=== PATIENT | male | born 1945 | race Caucasian/White ===

== ENCOUNTER 2020-02-03 14:06 | Emergency (ER) | payer OTHER | END 2020-02-03 15:40 | disposition home or self-care (01) | LOC: JVIRT 14:06 | DX: Z11.59 Encounter for screening for other viral diseases (principal) | CPT/HCPCS: C9803; Q3014-GT; U0003 ==

== ENCOUNTER 2020-03-22 07:12 | Emergency (ER) | payer OTHER ==
[2020-03-22] MEDS ORDERED: ACETAMINOPHEN 1000 MG/100 ML VIAL (NON FORMULARY) IVPB ONE (07:39)
[2020-03-22 07:46] VITALS: BMI 30.1
[2020-03-22] MEDS ORDERED: ACETAMINOPHEN INJECTION 100 ML IVPB ONE (08:05)
[2020-03-22 08:47] LABS: BASO % 0.3 % (0-2.0); EOS % 0.3 % (0-4.5); HEMATOCRIT 31.4 % (35.4-49); HEMOGLOBIN 10.7 GM/dL (11.7-16.9); LYMPH % 7.6 % (8-40); MCH 28.6 pg (25.7-33.7); MEAN CELL VOLUME 84.1 fl (80-96); MEAN PLT VOLUME 8.4 fl (7.5-11.1); MONO % 5.4 % (3.8-10.2); NEUT % 86.4 % (42.8-82.8); PLATELET COUNT 199 K/MM3 (134-434); RBC 3.74 M/mm3 (4.00-5.60); RDW 14.6 % (11.9-15.9); WHITE BLOOD COUNT 8.2 K/mm3 (4.0-10.0)
[2020-03-22 09:11] LABS: POTASSIUM 3.8 mmol/L (3.5-5.1); SODIUM 134 mmol/L (136-145)
[2020-03-22 09:12] LABS: CHLORIDE 100 mmol/L (98-107)
[2020-03-22 09:16] LABS: ANION GAP 7 MMOL/L (8-16); BLOOD UREA NITROGEN 15.8 mg/dL (7-18); CALCIUM 8.6 mg/dL (8.5-10.1); CO2 28 mmol/L (21-32); GLUCOSE,RANDOM 134 mg/dL (74-106)
[2020-03-22 09:17] LABS: ALBUMIN 2.9 g/dl (3.4-5.0)
[2020-03-22 09:18] LABS: LIPASE 47 U/L (73-393)
[2020-03-22 09:19] LABS: SGOT/AST 31 U/L (15-37); SGPT/ALT < 6 U/L (13-61)
[2020-03-22 09:21] LABS: BILIRUBIN,TOTAL 1.6 mg/dL (0.2-1); CREATININE 0.8 mg/dL (0.55-1.3); TOT PROT 7.4 g/dl (6.4-8.2)
[2020-03-22 09:22] LABS: ALK PHOS 100 U/L (45-117)
[2020-03-22] MEDS ORDERED: CARBIDOPA/LEVODOPA 25/250 TABLET (FP) PO ONE (10:56)
[2020-03-22 11:04] LABS: PH,URINE 5.5 (5.0-8.0); URINE APPEARANCE CLEAR; URINE BILIRUBIN NEGATIVE (NEGATIVE); URINE COLOR YELLOW; URINE GLUCOSE (UA) NEGATIVE (NEGATIVE); URINE KETONE TRACE (NEGATIVE); URINE LEUK ESTERASE NEGATIVE (NEGATIVE); URINE NITRITE NEGATIVE (NEGATIVE); URINE PROTEIN TRACE (NEGATIVE)
[2020-03-22] MEDS ORDERED: CARBIDOPA/LEVODOPA 25/250 TABLET (FP) ONE (11:21)
[2020-03-22 11:55] VITALS: BP 139/84; PULSE 84; TEMP 97.9
== END 2020-03-22 14:46 | disposition home or self-care (01) ==
LOC: JER 07:12
PROC: 3E033NZ Introduction of Analgesics, Hypnotics, Sedatives into Peripheral Vein, Percutaneous Approach (ICD-10-PCS; principal; 2020-03-22)
DX: K52.9 Noninfective gastroenteritis and colitis, unspecified (principal); C79.9 Secondary malignant neoplasm of unspecified site; R10.31 Right lower quadrant pain
CPT/HCPCS: 36415; 74177-TC; 80053; 81003; 82550; 83605; 83690; 84484; 85025; 87040; 87086; 93005; 93010; 99285-25; J0131; Q9967

== ENCOUNTER 2020-04-15 05:06 | Day surgery (SDC) | payer OTHER ==
[2020-04-13 14:06] VITALS: BMI 29.8
[2020-04-15 16:05] VITALS: BP 135/78; PULSE 85; TEMP 98.2
== END 2020-04-15 15:15 | disposition home or self-care (01) ==
LOC: JRADIR 05:06
PROVIDERS: ATTEND Internal Medicine Gastroenterology
PROC: 0FB13ZX Excision of Right Lobe Liver, Percutaneous Approach, Diagnostic (ICD-10-PCS; principal; 2020-04-15)
DX: C22.7 Other specified carcinomas of liver (principal)
CPT/HCPCS: 76942-TC; 87899; 88305-TC; 88341-TC; 88342-TC

== ENCOUNTER 2020-04-22 11:16 | Emergency (ER) | payer OTHER ==
[2020-04-22 11:47] VITALS: BMI 29.0
[2020-04-22] MEDS ORDERED: SODIUM CHLORIDE 0.9% 500 ML INFUS.BAG IV ONE (11:55)
[2020-04-22] MEDS ORDERED: ACETAMINOPHEN 1000 MG/100 ML VIAL (NON FORMULARY) IVPB ONE (11:55)
[2020-04-22 12:17] LABS: BASO % 0.5 % (0-2.0); EOS % 1.2 % (0-4.5); HEMATOCRIT 25.2 % (35.4-49); HEMOGLOBIN 8.2 GM/dL (11.7-16.9); LYMPH % 12.3 % (8-40); MCH 27.3 pg (25.7-33.7); MCHC 32.6 g/dl (32.0-35.9); MEAN CELL VOLUME 83.5 fl (80-96); MEAN PLT VOLUME 8.3 fl (7.5-11.1); MONO % 8.9 % (3.8-10.2); NEUT % 77.1 % (42.8-82.8); PLATELET COUNT 251 K/MM3 (134-434); RBC 3.02 M/mm3 (4.00-5.60); RDW 16.9 % (11.9-15.9)
[2020-04-22 12:28] LABS: INR 1.42 (0.83-1.09)
[2020-04-22] MEDS ORDERED: ACETAMINOPHEN INJECTION 100 ML IVPB ONE (12:29)
[2020-04-22 12:31] LABS: ACTIVATED PTT 31.8 SECONDS (25.2-36.5); CHLORIDE 102 mmol/L (98-107); SODIUM 139 mmol/L (136-145)
[2020-04-22 12:33] LABS: CALCIUM 8.7 mg/dL (8.5-10.1)
[2020-04-22 12:34] LABS: ALBUMIN 2.4 g/dl (3.4-5.0); ANION GAP 8 MMOL/L (8-16); BLOOD UREA NITROGEN 14.6 mg/dL (7-18); CO2 29 mmol/L (21-32); GLUCOSE,RANDOM 126 mg/dL (74-106)
[2020-04-22 12:37] LABS: CREATININE 0.8 mg/dL (0.55-1.3); SGOT/AST 36 U/L (15-37); SGPT/ALT 10 U/L (13-61)
[2020-04-22 12:39] LABS: BILIRUBIN,TOTAL 1.3 mg/dL (0.2-1); TOT PROT 7.2 g/dl (6.4-8.2)
[2020-04-22 12:40] LABS: ALK PHOS 142 U/L (45-117)
[2020-04-22 12:41] VITALS: PULSE 74
[2020-04-22 16:44] VITALS: BP 143/73; TEMP 98.7
== END 2020-04-22 16:45 | disposition home or self-care (01) ==
LOC: JER 11:16
PROC: 3E0333Z Introduction of Anti-inflammatory into Peripheral Vein, Percutaneous Approach (ICD-10-PCS; principal; 2020-04-22)
DX: R07.9 Chest pain, unspecified (principal)
CPT/HCPCS: 36415; 71045-TC-FY; 71275-TC; 80053; 82550; 84484; 85025; 85610; 85730; 93005; 93010; 99285-25; C9803; J0131; Q9967; U0003

== ENCOUNTER 2020-04-27 14:01 | Inpatient (IN) | payer OTHER ==
[2020-04-27] MEDS ORDERED: SODIUM CHLORIDE 2,517 ML IV ONE (15:49)
[2020-04-27 16:10] LABS: ALBUMIN 1.9 g/dl (3.4-5.0); CALCIUM 8.5 mg/dL (8.5-10.1)
[2020-04-27 16:11] LABS: BLOOD UREA NITROGEN 17.1 mg/dL (7-18)
[2020-04-27 16:14] LABS: CREATININE 0.8 mg/dL (0.55-1.3)
[2020-04-27 16:15] LABS: BILIRUBIN,TOTAL 0.9 mg/dL (0.2-1); TOT PROT 6.2 g/dl (6.4-8.2)
[2020-04-27 16:22] LABS: BASO % 0.2 % (0-2.0); EOS % 1.1 % (0-4.5); HEMATOCRIT 23.7 % (35.4-49); HEMOGLOBIN 7.6 GM/dL (11.7-16.9); LYMPH % 11.7 % (8-40); MCH 26.5 pg (25.7-33.7); MCHC 32.3 g/dl (32.0-35.9); MEAN CELL VOLUME 82.1 fl (80-96); MEAN PLT VOLUME 8.3 fl (7.5-11.1); MONO % 7.6 % (3.8-10.2); NEUT % 79.4 % (42.8-82.8); PLATELET COUNT 261 K/MM3 (134-434); RBC 2.88 M/mm3 (4.00-5.60); RDW 16.9 % (11.9-15.9); WHITE BLOOD COUNT 7.4 K/mm3 (4.0-10.0)
[2020-04-27] MEDS ORDERED: ACETAMINOPHEN 1000 MG/100 ML VIAL (NON FORMULARY) IVPB ONE (17:03)
[2020-04-27] MEDS ORDERED: CARBIDOPA/LEVODOPA 25/250 TABLET (FP) PO ONE (17:06)
[2020-04-27 17:22] LABS: INR 1.45 (0.83-1.09); PROTHROMBIN TIME (PATIENT) 17.7 SEC (9.7-13.0)
[2020-04-27] MEDS ORDERED: ACETAMINOPHEN INJECTION 100 ML IVPB ONE (17:22)
[2020-04-27] MEDS ORDERED: CARBIDOPA/LEVODOPA 25/250 TABLET (FP) ONE (17:38)
[2020-04-27] MEDS ORDERED: CEFTRIAXONE 1 GM in DEXTROSE 5%-WATER - 50 ML IVPB ONE (17:48)
[2020-04-27] MEDS ORDERED: AZITHROMYCIN IVPB 500 MG in DEXTROSE 5%-WATER - 250 ML IVPB ONE (17:49)
[2020-04-27] MEDS ORDERED: CEFTRIAXONE 1 GM/50 ML BAG ONE (17:58)
[2020-04-27] MEDS ORDERED: AZITHROMYCIN IVPB 500 MG/250 ML BAG IVPB ONE (17:59)
[2020-04-27 20:52] LABS: EPI CELLS 4 /uL (0-25.1); HYALINE CASTS 2 /uL (0-3.1); URINE APPEARANCE CLEAR; URINE BILIRUBIN 1+ (NEGATIVE); URINE COLOR ORANGE; URINE GLUCOSE (UA) NEGATIVE (NEGATIVE); URINE KETONE TRACE (NEGATIVE); URINE LEUK ESTERASE NEGATIVE (NEGATIVE); URINE NITRITE POSITIVE (NEGATIVE); URINE PROTEIN 1+ (NEGATIVE); URINE RBC 10 /uL (0-23.9); URINE WBC 5 /uL (0-25.8)
[2020-04-28] MEDS ORDERED: ACETAMINOPHEN 325 MG TABLET (FP) PO PRN (05:16)
[2020-04-28] MEDS: INSULIN SLIDING SCALE (NOVOLOG) 1 VIAL SQ SCH ×4 (06:27→22:37)
[2020-04-28 08:45] LABS: PH,URINE 5.5 (5.0-8.0); URINE APPEARANCE CLEAR; URINE BILIRUBIN NEGATIVE (NEGATIVE); URINE COLOR YELLOW; URINE GLUCOSE (UA) NEGATIVE (NEGATIVE); URINE KETONE NEGATIVE (NEGATIVE); URINE LEUK ESTERASE NEGATIVE (NEGATIVE); URINE NITRITE NEGATIVE (NEGATIVE); URINE PROTEIN NEGATIVE (NEGATIVE)
[2020-04-28 10:00] LABS: BASO % 0.5 % (0-2.0); EOS % 0.9 % (0-4.5); HEMATOCRIT 25.4 % (35.4-49); HEMOGLOBIN 8.5 GM/dL (11.7-16.9); LYMPH % 8.8 % (8-40); MCH 27.4 pg (25.7-33.7); MCHC 33.2 g/dl (32.0-35.9); MEAN CELL VOLUME 82.3 fl (80-96); MEAN PLT VOLUME 8.1 fl (7.5-11.1); MONO % 6.7 % (3.8-10.2); NEUT % 83.1 % (42.8-82.8); PLATELET COUNT 290 K/MM3 (134-434); RBC 3.09 M/mm3 (4.00-5.60); RDW 17.2 % (11.9-15.9); WHITE BLOOD COUNT 7.7 K/mm3 (4.0-10.0)
[2020-04-28] MEDS: SODIUM CHLORIDE 1,000 ML IV SCH (10:23)
[2020-04-28 10:27] LABS: CHLORIDE 108 mmol/L (98-107); POTASSIUM 3.8 mmol/L (3.5-5.1); SODIUM 141 mmol/L (136-145)
[2020-04-28 10:28] LABS: ALBUMIN 1.9 g/dl (3.4-5.0); ANION GAP 7 MMOL/L (8-16); BLOOD UREA NITROGEN 13.4 mg/dL (7-18); CALCIUM 8.1 mg/dL (8.5-10.1); CO2 27 mmol/L (21-32); GLUCOSE,RANDOM 97 mg/dL (74-106); MAGNESIUM 2.4 mg/dL (1.8-2.4)
[2020-04-28 10:31] LABS: SGPT/ALT 12 U/L (13-61)
[2020-04-28 10:32] LABS: CREATININE 0.6 mg/dL (0.55-1.3); PHOSPHOROUS 3.4 mg/dL (2.5-4.9)
[2020-04-28 10:33] LABS: BILIRUBIN,TOTAL 1.7 mg/dL (0.2-1); TOT PROT 6.3 g/dl (6.4-8.2)
[2020-04-28 10:34] LABS: ALK PHOS 122 U/L (45-117)
[2020-04-28 10:37] LABS: SGOT/AST 57 U/L (15-37)
[2020-04-28] MEDS: CARVEDILOL 25 MG TABLET (FP) PO SCH ×2 (10:50→22:37)
[2020-04-28] MEDS: CARBIDOPA/LEVODOPA 25/250 TABLET (FP) PO SCH ×4 (10:51→22:37)
[2020-04-28] MEDS: ASPIRIN COATED 81 MG TABLET.EC PO SCH (10:51)
[2020-04-28] MEDS: TENOFOVIR DISOPROXIL FUMARATE 300 MG TABLET PO SCH (10:51)
[2020-04-28] MEDS: CHOLECALCIFEROL (VIT D3) 1,000 UNIT (25 MCG) TABLET PO SCH (10:51)
[2020-04-28 16:16] VITALS: BMI 28.1
[2020-04-28] MEDS ORDERED: PATIENT'S OWN MEDICATION (NON-FORMULARY) (Mirabegron [Myrbetriq] 25 MG Tab.Er.24h) PO SCH (22:00)
[2020-04-28] MEDS: MIRTAZAPINE 15 MG TABLET (FP) PO SCH (22:37)
[2020-04-28] MEDS: ATORVASTATIN CA 10 MG TABLET (FP) PO SCH (22:37)
[2020-04-29] MEDS: INSULIN SLIDING SCALE (NOVOLOG) 1 VIAL SQ SCH ×4 (06:03→21:45)
[2020-04-29] MEDS: SODIUM CHLORIDE 1,000 ML IV SCH (06:05)
[2020-04-29 10:07] LABS: HEMATOCRIT 25.5 % (35.4-49); HEMOGLOBIN 8.5 GM/dL (11.7-16.9); MCH 27.3 pg (25.7-33.7); MCHC 33.5 g/dl (32.0-35.9); MEAN CELL VOLUME 81.5 fl (80-96); MEAN PLT VOLUME 7.6 fl (7.5-11.1); PLATELET COUNT 309 K/MM3 (134-434); RBC 3.12 M/mm3 (4.00-5.60); RDW 17.1 % (11.9-15.9); WHITE BLOOD COUNT 6.9 K/mm3 (4.0-10.0)
[2020-04-29 10:28] LABS: POTASSIUM 3.7 mmol/L (3.5-5.1)
[2020-04-29 10:34] LABS: CALCIUM 8.3 mg/dL (8.5-10.1)
[2020-04-29 10:35] LABS: ALBUMIN 1.9 g/dl (3.4-5.0); MAGNESIUM 2.4 mg/dL (1.8-2.4)
[2020-04-29 10:38] LABS: CREATININE 0.5 mg/dL (0.55-1.3)
[2020-04-29 10:39] LABS: BILIRUBIN,TOTAL 1.6 mg/dL (0.2-1); TOT PROT 6.4 g/dl (6.4-8.2)
[2020-04-29] MEDS: CARVEDILOL 25 MG TABLET (FP) PO SCH ×2 (11:00→21:59)
[2020-04-29] MEDS: TENOFOVIR DISOPROXIL FUMARATE 300 MG TABLET PO SCH (11:00)
[2020-04-29] MEDS: CHOLECALCIFEROL (VIT D3) 1,000 UNIT (25 MCG) TABLET PO SCH (11:00)
[2020-04-29] MEDS: ASPIRIN COATED 81 MG TABLET.EC PO SCH (11:00)
[2020-04-29] MEDS: CARBIDOPA/LEVODOPA 25/250 TABLET (FP) PO SCH ×4 (11:00→21:59)
[2020-04-29 14:16] LABS: ARTERIAL BLD GAS O2 SATURATION 95.2 mmHg (95-98); ARTERIAL BLOOD GAS PO2 71.8 mmHg (80-100); ARTERIAL BLOOD GAS pH 7.448 (7.350-7.450)
[2020-04-29 14:18] LABS: ALLENS TEST POSITIVE
[2020-04-29] MEDS: PATIENT'S OWN MEDICATION (NON-FORMULARY) (Ubidecarenone/Vit E Acet [Co Q-10 100 Mg Softgel PO SCH ×2 (14:24→14:25)
[2020-04-29] MEDS ORDERED: METOPROLOL TARTRATE 5 MG/5 ML VIAL IVPB ONE (21:12)
[2020-04-29] MEDS: ATORVASTATIN CA 10 MG TABLET (FP) PO SCH (21:59)
[2020-04-29] MEDS: MIRTAZAPINE 15 MG TABLET (FP) PO SCH (21:59)
[2020-04-30 00:32] VITALS: BP 149/81; PULSE 73; TEMP 98.9
== END 2020-04-29 23:30 | disposition home or self-care (01) | DRG 375 ==
LOC: JER 14:01 → JERBED 15:58 → J5S 20:24
PROVIDERS: ADMIT Internal Medicine; ATTEND Internal Medicine
PROC: 30233N1 Transfusion of Nonautologous Red Blood Cells into Peripheral Vein, Percutaneous Approach (ICD-10-PCS; principal; 2020-04-28)
DX: C18.9 Malignant neoplasm of colon, unspecified (principal); C78.7 Secondary malignant neoplasm of liver and intrahepatic bile duct; C78.00 Secondary malignant neoplasm of unspecified lung; C79.31 Secondary malignant neoplasm of brain; B19.10 Unspecified viral hepatitis B without hepatic coma; I69.354 Hemiplegia and hemiparesis following cerebral infarction affecting left non-dominant side; I25.10 Atherosclerotic heart disease of native coronary artery without angina pectoris; E11.9 Type 2 diabetes mellitus without complications; K76.0 Fatty (change of) liver, not elsewhere classified; D64.9 Anemia, unspecified; H66.90 Otitis media, unspecified, unspecified ear; I10 Essential (primary) hypertension; R41.82 Altered mental status, unspecified; G20 Parkinson's disease; R94.5 Abnormal results of liver function studies; F02.80 Dementia in other diseases classified elsewhere, unspecified severity, without behavioral disturbance, psychotic disturbance, mood disturbance, and anxiety; R62.7 Adult failure to thrive; Z68.27 Body mass index [BMI] 27.0-27.9, adult; Z95.1 Presence of aortocoronary bypass graft
CPT/HCPCS: 36415; 36430; 36600; 70450-TC; 70552-TC; 71045-TC-FY; 80053; 81003; 82140; 82272; 82728; 82803; 82962; 83605; 83615; 83735; 84100; 84443; 84484; 85025; 85027; 85610; 85730; 86140; 86850; 86900; 86901; 86922; 87040; 87086; 93005; 93010; 99285-25; A9579; C9803; J0131; P9058; U0003